=== PATIENT | female | born 1980 | race American Indian/Alaskan Native ===

== ENCOUNTER 2020-10-01 05:55 | Emergency (ER) | payer BC, OTHER ==
--- NOTE | 2020-10-01 06:36 | Emergency Department Report ---
ED Headache HPI - General Chief Complaint: Headache Stated Complaint: SEVERE FRONTAL HEADACHE Time Seen by Provider: 10/01/20 06:22 Source: patient - History of Present Illness Initial Comments: Patient is 40 years old female with history of hypertension and occasional headache. Patient presented to the ER complaining of frontal headache started last night all of a sudden. Patient stated that she took Tylenol and ibuprofen with no improvement. Patient stated that this is different from her previous headache. Patient also stated that she had mild runny nose and congestion for the last few days. She denied any fever, chills, neck pain, weakness numbness or tingling sensation. No bowel or bladder incontinence. Timing/Duration: 24 hours Quality: moderate Head Injury Location: frontal Recent Head Trauma: no recent headache/trauma, occasional headaches Associated Symptoms: denies: denies symptoms, confusion, fatigue, facial pain, fever/chills, flushing, loss of consciousness, nausea/vomiting, nasal congestion, nasal drainage, numbness in legs/feet, rash, seizures, sinus infection, stiff neck, vision changes, weakness, other Allergies/Adverse Reactions: Allergies No Known Allergies Allergy (Unverified 10/01/20 07:02) ED Review of Systems ROS: Stated complaint: SEVERE FRONTAL HEADACHE Other details as noted in HPI Comment: All other systems reviewed and negative Constitutional: denies: chills, fever ENT: congestion Respiratory: denies: cough, orthopnea, shortness of breath, SOB with exertion, SOB at rest Cardiovascular: denies: chest pain, palpitations Gastrointestinal: denies: abdominal pain, nausea, vomiting Musculoskeletal: denies: back pain Neurological: headache. denies: weakness, numbness, paresthesias, confusion, abnormal gait ED Past Medical Hx - Past Medical History Previous Medical History?: Yes Hx Hypertension: Yes - Surgical History Past Surgical History?: No - Social History Smoking Status: Former Smoker Substance Use Type: None ED Physical Exam - General Limitations: No Limitations General appearance: alert, in no apparent distress - Head Head exam: Present: atraumatic, normocephalic, normal inspection - Eye Eye exam: Present: normal appearance, PERRL - ENT ENT exam: Present: other (Bilateral frontal and ethmoid sinus tenderness.) - Respiratory Respiratory exam: Present: normal lung sounds bilaterally - Cardiovascular Cardiovascular Exam: Present: regular rate, normal rhythm, normal heart sounds - GI/Abdominal GI/Abdominal exam: Present: soft, normal bowel sounds. Absent: distended, tenderness, guarding, rebound, rigid, organomegaly, mass, bruit, pulsatile mass, hernia - Extremities Exam Extremities exam: Present: normal inspection, full ROM, normal capillary refill. Absent: tenderness, pedal edema, joint swelling, calf tenderness - Back Exam Back exam: Present: normal inspection, full ROM. Absent: CVA tenderness (R), CVA tenderness (L) - Neurological Exam Neurological exam: Present: alert, oriented X3, CN II-XII intact, normal gait, reflexes normal. Absent: motor sensory deficit - Psychiatric Psychiatric exam: Present: normal mood - Skin Skin exam: Present: warm, intact, normal color ED Course Vital Signs 10/01/20 10/01/20 10/01/20 06:06 07:33 07:37 Temperature 98.9 F Pulse Rate 77 64 67 Respiratory 12 14 19 Rate Blood Pressure 133/79 Blood Pressure 129/69 [Left] O2 Sat by Pulse 100 100 100 Oximetry 10/01/20 10/01/20 10/01/20 07:38 07:46 08:16 Temperature Pulse Rate 65 102 H Respiratory 20 14 Rate Blood Pressure 129/69 139/69 Blood Pressure [Left] O2 Sat by Pulse 100 100 100 Oximetry ED Medical Decision Making - Lab Data Result diagrams: 10/01/20 07:03 10/01/20 07:03 - Radiology Data Radiology results: report reviewed - Medical Decision Making Patient is 40 years old female with history of hypertension and occasional headache. Patient presented to the ER complaining of frontal headache started last night all of a sudden. Patient stated that she took Tylenol and ibuprofen with no improvement. Patient stated that this is different from her previous headache. Patient also stated that she had mild runny nose and congestion for the last few days. She denied any fever, chills, neck pain, weakness numbness or tingling sensation. No bowel or bladder incontinence. Patient received morphine and Reglan. Patient stated that she is feeling much better. Patient CT brain is negative for acute finding. Labs reviewed and is unremarkable. No evidence of meningitis. Patient advised to follow-up with her primary care physician in the next 2 to 3 days and to return to the ER she develop any new symptoms. Critical care attestation.: If time is entered above; I have spent that time in minutes in the direct care of this critically ill patient, excluding procedure time. ED Disposition Clinical Impression: Acute headache Disposition: DC-01 TO HOME OR SELFCARE Is pt being admited?: No Condition: Stable Instructions: General Headache Without Cause Referrals: PRIMARY CARE, [Primary Care Provider] - 3-5 Days
--- NOTE | 2020-10-01 07:06 | Cat Scan Report ---
CT HEAD WITHOUT CONTRAST INDICATION : ACUTE HEADACHE. TECHNIQUE: Axial, coronal and sagittal CT imaging was performed from the skull apex through the skul l base without contrast. All CT scans at this location are performed using CT dose reduction for ALA RA by means of automated exposure control. COMPARISON: None available. FINDINGS: PARENCHYMA: No mass, midline shift, hemorrhage, extraaxial collection or acute territorial infarctio n. VENTRICLES: Symmetric and normal in size. SOFT TISSUES: No significant abnormality of the included soft tissues/orbits. BONES: No acute osseous abnormality. SINUSES: No significant abnormality. ADDITIONAL FINDINGS: None. IMPRESSION: 1. No acute intracranial abnormality. Signer Name: Elfego Green MD Signed: 10/01/2020 7:00 AM Workstation Name: [id number]
[2020-10-01 07:41] LABS: Basophils # (Auto) 0.1 K/mm3 (0.0-0.1); Basophils % (Auto) 0.5 % (0.0-1.8); Eosinophils # (Auto) 0.5 K/mm3 (0.0-0.4); Eosinophils % (Auto) 4.4 % (0.0-4.3); Hematocrit 37.9 % (30.3-42.9); Hemoglobin 12.6 gm/dl (10.1-14.3); Lymphocytes # (Auto) 2.6 K/mm3 (1.2-5.4); Lymphocytes % (Auto) 24.2 % (13.4-35.0); Mean Corpuscular HGB Conc 33 % (30-34); Mean Corpuscular Volume 86 fl (79-97); Monocytes # (Auto) 1.1 K/mm3 (0.0-0.8); Monocytes % (Auto) 10.2 % (0.0-7.3); Platelet Count 276 K/mm3 (140-440); Red Blood Count 4.42 M/mm3 (3.65-5.03); Red Cell Distribution Width 13.8 % (13.2-15.2)
[2020-10-01] MEDS ORDERED: METOCLOPRAMIDE 10 MG/2 ML INJ IV ONE (07:51)
[2020-10-01] MEDS ORDERED: MORPHINE 4 MG/1 ML INJ IM ONE (07:51)
[2020-10-01 08:55] LABS: WBC,Urine < 1.0 /HPF (0.0-6.0)
[2020-10-01 09:24] LABS: Bilirubin,Urine NEG (Negative); Blood,Urine NEG (Negative); Color,Urine Straw (Yellow); Protein,Urine <15 mg/dL mg/dL (Negative); Urobilinogen,Urine < 2.0 mg/dL (<2.0)
[2020-10-01 09:54] VITALS: BP 135/75
== END 2020-10-01 10:44 | disposition home or self-care (01) ==
LOC: ED 05:55
DX: R51.9 Headache, unspecified (principal); I10 Essential (primary) hypertension; Z87.891 Personal history of nicotine dependence
CPT/HCPCS: 36415; 70450; 80048; 81001; 84703; 85025; 96372; 96374; 99284; J2270; J2765